=== PATIENT | male | born 1985 | race Hispanic/Latino ===

== ENCOUNTER 2023-12-07 23:53 | Emergency (ER) | payer SELFPAY ==
[~2023-12-07] VITALS: Ht 172.7 cm; Wt 74.8 kg
[2023-12-08] MEDS ORDERED: FAMOTIDINE 20MG TAB PO ONE (00:30)
[2023-12-08 00:45] LABS: BASOPHILS # (AUTO) 0.07 K/uL (0.00-0.20); BASOPHILS % (AUTO) 0.9 % (0.0-5.0); EOSINOPHILS # (AUTO) 0.22 K/uL (0.00-0.70); EOSINOPHILS % (AUTO) 2.8 % (0.0-8.0); HEMATOCRIT 39.2 % (42-54); IMMATURE GRANULOCYTE ABSOLUTE 0.03 K/uL (0-1); LYMPHOCYTES # (AUTO) 2.7 K/uL (1.0-4.8); LYMPHOCYTES % (AUTO) 34.8 % (21.0-51.0); MEAN CORPUSCULAR HGB CONC 34.4 g/dL (32.0-36.0); MEAN CORPUSCULAR VOLUME 90.1 fL (79-99); MONOCYTES # (AUTO) 0.7 K/uL (0.1-1.0); MONOCYTES % (AUTO) 9.3 % (3.0-13.0); NEUTROPHILS % (AUTO) 51.8 % (40.0-77.0); PLATELET COUNT (AUTO) 337 K/uL (130-400); RED BLOOD CELL COUNT(AUTO) 4.35 MIL/uL (4.50-6.20); RED CELL DISTRIBUTION WIDTH 12.7 % (11.0-15.5); WHITE BLOOD COUNT (AUTO) 7.8 K/uL (4.8-10.8)
[2023-12-08 00:47] LABS: ALBUMIN 3.6 g/dL (3.5-5.0); BILIRUBIN,TOTAL 0.2 mg/dL (0.2-1.0); TOTAL PROTEIN, SERUM 6.8 g/dL (6.0-8.3)
[2023-12-08] MEDS: KETOROLAC 15MG/ML VIAL (15MG/ML) IV ONE (01:06)
[2023-12-08] MEDS: ONDANSETRON 4MG INJ IVP ONE (01:06)
[2023-12-08] MEDS: 0.9%NACL 1000ML 1,000 ML IV ONE (01:07)
[2023-12-08] MEDS: FAMOTIDINE 20MG VIAL IV ONE (01:14)
[2023-12-08 01:17] LABS: ADD UA MICROSCOPIC NO; APPEARANCE,URINE CLEAR (CLEAR); BILIRUBIN,URINE NEGATIVE (NEGATIVE); COLOR,URINE COLORLESS (YELLOW); GLUCOSE, URINE (UA) NEGATIVE (NEGATIVE); KETONES,URINE NEGATIVE (NEGATIVE); LEUKOCYTE ESTERASE ,URINE NEGATIVE Leu/uL (NEGATIVE); NITRATE,URINE NEGATIVE (NEGATIVE); OCCULT BLOOD,URINE NEGATIVE (NEGATIVE); PH,URINE 5.5 (5.0-8.0); PROTEIN,URINE NEGATIVE (NEGATIVE); UROBILINOGEN,URINE 0.2 mg/dL (0.2-1.0)
[2023-12-08] MEDS ORDERED: IOHEXOL 350 MG/ML 100ML INFUS..BTL IV ONE (01:35)
[2023-12-08 02:07] LABS: AMPHET/METH SCREEN,URINE NEGATIVE (NEGATIVE); BARBITURATE SCREEN, URINE NEGATIVE (NEGATIVE); BENZODIAZEPINES SCREEN,URINE NEGATIVE (NEGATIVE); CANNABINOID SCREEN,URINE POSITIVE (NEGATIVE); COCAINE SCREEN,URINE POSITIVE (NEGATIVE); OPIATE SCREEN,URINE NEGATIVE (NEGATIVE); PHENCYCLIDINE SCREEN,URINE NEGATIVE (NEGATIVE)
[2023-12-08] MEDS ORDERED: POTASSIUM BICARB/CIT AC 25 MEQ TABLET.EFF PO STA (02:47)
[2023-12-08] MEDS ORDERED: ONDA-243 PO (02:59)
[2023-12-08 03:07] VITALS: BP 101/88; PULSE 98; RESP 16; O2SAT 99
== END 2023-12-08 03:28 | disposition home or self-care (01) ==
LOC: EDH 23:53
DX: R10.84 Generalized abdominal pain (principal); R11.2 Nausea with vomiting, unspecified; E87.6 Hypokalemia; F19.10 Other psychoactive substance abuse, uncomplicated; Z79.899 Other long term (current) drug therapy
CPT/HCPCS: 99285; 82550; 80053; 80305; 83690; 85025; 81003; 36415; 74177; 96374; 96375; J3490; J7030; J2405; J1885; Q9967